=== PATIENT | male | born 1975 | race Caucasian/White ===

== ENCOUNTER → 2018-04-02 | Emergency (ER) | payer OTHER ==
[~2018-04-02] VITALS: Ht 175.3 cm; Wt 78.0 kg
[~2018-04-02] MED LIST: CYCLOBENZAPRINE10 MG PO; KETO10TA2 PO; ORPHENADRINE C100 MG PO
== END | disposition home or self-care (01) ==
LOC: ER 17:54 → EMR PED 18:06 → ER 18:06
DX: S29.012A Strain of muscle and tendon of back wall of thorax, initial encounter (principal); X50.0XXA Overexertion from strenuous movement or load, initial encounter; Y93.89 Activity, other specified; Y92.89 Other specified places as the place of occurrence of the external cause; Y99.8 Other external cause status

== ENCOUNTER 2018-08-10 22:33 | Emergency (ER) | payer OTHER ==
[~2018-08-10] VITALS: Ht 180.3 cm; Wt 76.7 kg
[2018-08-10] MEDS ORDERED: VALIUM PO (23:27)
== END 2018-08-11 00:14 | disposition home or self-care (01) ==
LOC: ER 22:33
DX: M54.42 Lumbago with sciatica, left side (principal)

== ENCOUNTER 2020-01-25 17:06 | Emergency (ER) | payer OTHER ==
[~2020-01-25] VITALS: Ht 175.3 cm; Wt 72.1 kg
[~2020-01-25 17:06] MED LIST changes: +VALIUM PO
== END 2020-01-25 19:32 | disposition home or self-care (01) ==
LOC: ER 17:06
DX: B02.8 Zoster with other complications (principal)

== ENCOUNTER 2024-02-05 13:11 | Emergency (ER) | payer OTHER ==
[~2024-02-05] VITALS: Ht 167.6 cm; Wt 82.6 kg
[2024-02-05 14:35] LABS: HEMOGLOBIN 15.7 g/dL (13-16.00); MEAN CELL VOLUME 89.8 fL (80.0-100.00); MEAN CORPUSCULAR HEMOGLOBIN 30.6 pg (27.00-32.0); MEAN CORPUSCULAR HGB CONC 34.1 g/dl (32.0-36.0); PLATELET COUNT 291 K/uL (150-450); RED BLOOD COUNT 5.13 M/uL (4.00-6.00); RED CELL DISTRIBUTION WIDTH 13.2 % (11.5-14.5)
[2024-02-05 14:38] LABS: ERYTHROCYTE SEDIMENTATION RATE 4 mm/hr
[2024-02-05 15:39] LABS: ALBUMIN 3.5 gm/dL (3.4-5.0); BILIRUBIN TOTAL 0.93 mg/dL (0.3-1.2); CALCIUM 9.2 mg/dL (8.5-10.1); CREATININE SERUM 0.9 mg/dL (0.70-1.30); GFR 90.84; GLOBULINA 3.2 G/DL (2.4-3.5); POTASSIUM 4.2 mEq/L (3.5-5.1); TOTAL PROTEIN 6.7 gm/dL (6.4-8.2)
[2024-02-05 15:43] LABS: C-REACTIVE PROTEIN 0.48 MG/DL (0.00-0.29)
[2024-02-05] MEDS ORDERED: ATHLETIC FOOT C30 GM TOP (15:47)
[2024-02-05] MEDS ORDERED: TERBINAFINE HC250 MG PO (15:47)
== END 2024-02-05 15:55 | disposition home or self-care (01) ==
LOC: ER 13:13
PROVIDERS: General Practice
DX: L08.9 Local infection of the skin and subcutaneous tissue, unspecified (principal); B35.3 Tinea pedis

== ENCOUNTER 2025-04-18 23:20 | Emergency (ER) | payer OTHER ==
[~2025-04-18] VITALS: Ht 175.3 cm; Wt 78.0 kg
[~2025-04-18 23:20] MED LIST changes: +ATHLETIC FOOT C30 GM TOP; +TERBINAFINE HC250 MG PO
[2025-04-19 00:22] VITALS: BP 123/79; O2SAT 99
[2025-04-19] MEDS ORDERED: DEXAMETHASONE SODIUM PHOSPHATE 4 MG/ML VIAL IM STA (00:59)
[2025-04-19] MEDS ORDERED: KETOROLAC TROMETHAMINE 30 MG VIAL IM STA (00:59)
[2025-04-19] MEDS ORDERED: ORPHENADRINE CITRATE 30 MG/ML AMPUL IM STA (00:59)
[2025-04-19 01:48] LABS: BASO % 0.9 % (0.1-1.2); EOS # 0.19 (0.04-0.54); EOS % 1.9 % (0.7-7.0); LYMPH # 3.09 (1.18-3.74); LYMPH % 31.6 % (19.3-53.1); MEAN PLATELET VOLUME 9.50 fl (9.4-12.4); MONO # 1.14 (0.24-0.82); MONO % 11.6 % (4.7-12.5); NEUT # 5.26 (1.56-6.13); NEUT % 53.8 % (34.0-71.1); RED CELL DISTRIBUTION WIDTH 13.0 % (11.6-14.4)
[2025-04-19 02:08] LABS: URINE APPEARANCE Clear; URINE BILIRRUBIN Negative (NEGATIVE); URINE BLOOD Negative; URINE COLOR Yellow; URINE GLUCOSE Negative (NEGATIVE); URINE KETONE Trace (NEGATIVE); URINE LEUKOCYTE Small; URINE NITRATE Negative; URINE PROTEIN Trace (NEGATIVE); URINE UROBILINOGEN 1.0 E.U./dl
[2025-04-19 02:12] LABS: URINE BACTERIA 124.6 uL (0.0-1933); URINE EPITHELIAL CELLS 1.6 uL (0.0-38.8); URINE WBC 920.8 uL (0.0-23.2)
[2025-04-19 02:13] LABS: INR 0.99
[2025-04-19 02:23] LABS: ALT/SGPT 31.0 U/L (12-78); AST/SGOT 24.0 U/L (15-37); BILIRUBIN TOTAL 0.35 mg/dL (0.3-1.2); BUN CREA RATIO 20.0 (7.0-25.0); CREATININE SERUM 0.96 mg/dL (0.70-1.30); GFR 83.6; GLOBULINA 3.5 G/DL (2.4-3.5); GLUCOSE FASTING 105.0 mg/dL (65-100); OSMOLALITY SERUM 280.0 MOSM/KG (275-295)
[2025-04-19 03:24] LABS: URINE CAST 0.56 uL (0.0-1.40); URINE RBC 1.9 uL (0.0-20.8)
[2025-04-19] MEDS ORDERED: 0.9 % SODIUM CHLORIDE 1,000 ML IV STA (03:34)
[2025-04-19] MEDS ORDERED: CEFTRIAXONE SODIUM 1,000 MG VIAL IV STA (03:34)
[2025-04-19] MEDS ORDERED: CIPRO500 MG PO (04:24)
[2025-04-19] MEDS ORDERED: NORFLEX100MG PO (04:24)
[2025-04-19] MEDS ORDERED: IBU600 MG PO (04:24)
== END 2025-04-19 05:31 | disposition home or self-care (01) ==
LOC: ER 23:21
PROVIDERS: Physician Assistant Medical
DX: M54.16 Radiculopathy, lumbar region (principal); N39.0 Urinary tract infection, site not specified; M51.369 Other intervertebral disc degeneration, lumbar region without mention of lumbar back pain or lower extremity pain